=== PATIENT | female | born 1960 | race African-American/Black ===

== ENCOUNTER 2024-08-03 11:17 | Outpatient (CLI) | payer MEDICARE, BC ==
--- NOTE | 2024-08-03 14:08 | DVH ---
PARANASAL SINUSES: INDICATION: SINUSITIS TECHNIQUE: 4 views FINDINGS: The paranasal sinuses are well-aerated. No abnormal soft tissue densities or air-fluid levels are present. Osseous alignment is anatomic. No displaced fractures are demonstrated. IMPRESSION: Normal sinus series
== END 2024-08-03 17:00 | disposition home or self-care (01) ==
LOC: Rad HDHVI 11:17
PROVIDERS: ATTEND Internal Medicine Cardiovascular Disease
DX: J32.9 Chronic sinusitis, unspecified (principal)
CPT/HCPCS: 70220

== ENCOUNTER 2024-08-06 12:56 | Outpatient (CLI) | payer MEDICARE, BC | END 2024-08-06 17:00 | disposition home or self-care (01) | LOC: Rad HDHVI 12:56 | PROVIDERS: ATTEND Internal Medicine Cardiovascular Disease | DX: I10 Essential (primary) hypertension (principal); E78.5 Hyperlipidemia, unspecified; Z95.0 Presence of cardiac pacemaker | CPT/HCPCS: 93306 ==

== ENCOUNTER 2025-01-24 10:34 | Emergency (ER) | payer MEDICARE, BC ==
[~2025-01-24] VITALS: Ht 157.5 cm; Wt 71.0 kg
[2025-01-24 10:36] VITALS: BP 121/82; PULSE 100; RESP 18; TEMP 98.1; O2SAT 100
== END 2025-01-24 11:02 | disposition left against medical advice (07) ==
LOC: ER 10:34
DX: I10 Essential (primary) hypertension (principal); Z53.21 Procedure and treatment not carried out due to patient leaving prior to being seen by health care provider